=== PATIENT | male | born 1990 | race Caucasian/White ===

== ENCOUNTER 2021-09-14 00:16 | Emergency (ER) | payer SELFPAY ==
[~2021-09-14] VITALS: Ht 162.6 cm; Wt 100.0 kg
[2021-09-14] MEDS ORDERED: BACITRACIN ZINC OINT UDPKT TOP SCH (01:00)
[2021-09-14] MEDS ORDERED: ACETAMINOPHEN 325MG TABLET PO SCH (01:00)
[2021-09-14] MEDS ORDERED: NEOM1PAC6 TP (01:03)
[2021-09-14] MEDS ORDERED: ACET-2708 PO (01:03)
[2021-09-14 01:37] VITALS: BP 165/84
== END 2021-09-14 01:39 ==
LOC: ER 00:16
DX: S71.112A Laceration without foreign body, left thigh, initial encounter (principal); Y93.39 Activity, other involving climbing, rappelling and jumping off; Y93.89 Activity, other specified; Y92.89 Other specified places as the place of occurrence of the external cause; Y99.8 Other external cause status
CPT/HCPCS: 99283